=== PATIENT | female | born 1965 ===

== ENCOUNTER 2025-08-30 07:00 | Day surgery (SDC) | payer OTHER ==
[2025-08-30] MEDS ORDERED: MIDAZOLAM HCL 2 MG/2 ML VIAL IV ONE (08:15)
[2025-08-30] MEDS ORDERED: DIPHENHYDRAMINE HCL 50 MG/ML VIAL 1ML IV ONE (08:15)
[2025-08-30] MEDS ORDERED: fentaNYL CITRATE 50 MCG/ML AMPUL IV PUSH ONE (08:15)
== END 2025-08-30 09:50 | disposition home or self-care (01) ==
LOC: AMB-ENDOS 07:00
PROVIDERS: ATTEND Colon & Rectal Surgery
DX: D12.5 Benign neoplasm of sigmoid colon (principal); K63.5 Polyp of colon